=== PATIENT | female | born 1940 | race Two or more races ===

== ENCOUNTER → 2016-10-24 | Outpatient (CLI) | payer MEDICARE, BC ==
[~2016-10-24] MED LIST: ASPIRIN325 MG PO; BRILINTA90 MG PO; CPAP; ENDOXCIN 4%-1%1 EACH TOP; LIPITOR80 MG PO; LOPRESSOR25 MG PO; MUCOMYST 20200 MG/M1 PO; NITROSTAT0.4 MG SL; NORVASC2.5 MG PO; OMEPRAZOLE40 MG PO; PLAVIX75 MG PO; SKELAXIN800 MG PO; TRIACET 0.1 CRE15 GM TOP; TYLENOL325 MG PO
== END | disposition disaster alternative care site (69) ==
LOC: LFPA 15:51
DX: R82.71 Bacteriuria (principal)

== ENCOUNTER 2016-10-31 07:27 | Outpatient (CLI) | payer MEDICARE, BC ==
[~2016-10-31] VITALS: Ht 157.5 cm; Wt 64.6 kg
--- NOTE | ~2016-10-31 | CATH ---
Peripheral Diagnostic + Interventional Report Demographics Patient Name SYEDA Castorena Gender Female Date of 1940 Age 76 year(s) Patient Number [id number] Date of Study 10/31/2016 Visit Number [id number] Room Number G6[address] [place] [id number] Ht 157 cm Wt 64.6 kg Referring Tico Dong MD Primary Physician Physician Performing Rene Mitchell MD Secondary Physician Physician Diagnostic Rene Mitchell MD Assisting Physician Physician Interventional Rene Mitchell MD Physician Repair Technician Physician Findings and Conclusions Diagnostic Findings and Conclusion 6fr RDC1 guide, 0.014 prowater wire TANK INSULATOR RUBBER with 4.0x20 Emerge balloon PTI stent 7.0x17 [place] EVS to 7.2mm Diagnostic Recommendations DAPT x 1 shilpa Pull sheath in 1 hour with manual pressure Peripheral Findings and Conclusions Lt renal artery, single large with 99% prox lesion Rt renal arteriofram Dual supply 1.superior pole small ok 2. Inferior pole small ok Peripheral Recommendations PCI lt renal Procedure Description The patient was brought to the diagnostic cardiac catheterization-EP laboratory in the fasting, non-sedated state. Informed consent was obtained in the written and verbal form after the risks and benefits were explained. The patient had no further questions and agreed to proceed. The planned puncture-incision site(s) were shaved and prepped with ChloraPrep. After a three minute dry time the patient was draped in the usual sterile manner. Conscious sedation and pain control medications were delivered by a registered nurse under physician guidance. Surface ECG rhythm, blood pressure measurement, supplemental oxygen, and pulse oximetry were monitored throughout the procedure. Arterial access. The access site was infiltrated with lidocaine. The vessel was entered with the Seldinger technique. A sheath was advanced into the vessel and used for catheter placement. Bilateral Renal Angiography:Diagnostic bilateral renal angiography preformed with a JR4 diagnostic catheter. Under fluoroscopic guidance a guide catheter was placed. Contrast was injected and images were obtained. Balloon Dilatation: A wire was advanced across the lesion. The balloon catheter was placed across the lesion and inflated. Stent Placement: A wire was advanced across the lesion. The stent was then placed across the lesion and deployed. Patient was sent to nursing floor with 6 fr sheath sutured in rt groin, to be pulled in two hours post angiomax infusion. Diagnostic Cath Status: Elective Interventional Cath Status: Urgent Procedure Procedure Type Peripheral Cath Diagnostic Procedure:Renal Angiography:, Bilateral Peripheral vascular Intervention:PV Stent Indications: Hypertension. The procedure was explained in detail to the patient. Risks, complications and alternative treatments were reviewed. Written consent was obtained. Medications Reviewed with Patient prior to Procedure. Procedure Data Procedure Date Date: 10/31/2016Start: :22 AMEnd: 10:14 AM Entry Locations - Retrograde Percutaneous access was performed through the Right Femoral artery (Primary location). A 6 Fr sheath was inserted. Hemostasis was successfully obtained using Manual Compression. Closure Comments: sheath sutured in, to be pulled later on nursing floor after 2hr post angiomax ]. Procedure Medications Order and Administration + + + + + !Time !Medication !Dosage !Route ! + + + + + !10/31/2016 09:21 !Versed !1 mg !I.V. ! !AM ! ! ! ! + + + + + !10/31/2016 09:22 !Fentanyl !50 mcg !I.V. ! !AM ! ! ! ! + + + + + !10/31/2016 09:25 !Fentanyl !25 mcg !I.V. ! !AM ! ! ! ! + + + + + !10/31/2016 09:36 !Angiomax (Bivalirudin) !50 mg !I.V. bolus ! !AM !(ACC_5) ! ! ! + + + + + !10/31/2016 09:36 !Angiomax (Bivalirudin) !1.75 mg/kg/hr!I.V. drip ! !AM !(ACC_5) ! ! ! + + + + + !10/31/2016 10:04 !Plavix (ACC_8) !300 mg ! ! !AM ! ! ! ! + + + + + !10/31/2016 10:04 !Angiomax (Bivalirudin) ! !I.V. drip ! !AM !(ACC_5) ! ! ! + + + + + Devices Used - A6 Fr. BS JR 4 Diag. Catheterwas used for:Left renal. - A8 Fr. RDC(l) Guide Catheterwas used for:Left renal. Contrast Material - Isovue [id number] ml Fluoroscopy Time: Diagnostic: 12:30 minutes. Total: 12:30 minutes. Fluoroscopy Dose: Diagnostic: 380 mGy. Total: 380 mGy. Estimated Blood Loss: 5 ml. Medical History Allergies - Other:(Neomycin, Bacitracin, Polymyxin). - Penicillin. - Other:(neomycin, bacitracin, polymixin). Risk Factors The patient risk factors include:peripheral arterial disease, physical activity, hypertension, renal failure and Current/Recent(w/in 1 year) tobacco use. Admission Data Admission Date: 10/31/2016 Admission Time: 07:27 AM Admit Source: Other Insurance Payors: Medicare. Hemodynamics Condition: Rest O2 Consumption: Estimated: 144.69Heart Rate: 62 bpm Pressures (mmHg) +-----+ + !Site !Pressure ! +-----+ + !AO !164/53 (92) ! +-----+ + Shunts Oxygen Values O2 Capacity 170 O2 Consumption 144.69 Discharge Data Discharge Date: 11/01/2016 Hospital Status: Outpatient Signatures dtt: Stephen López (cardio) dtd: 10/31/16 0922 Physician Self Edit
[~2016-10-31 07:27] MED LIST changes: -MUCOMYST 20200 MG/M1 PO; -NORVASC2.5 MG PO
[2016-10-31] MEDS ORDERED: MUCOMYST 20200 MG/M1 PO (08:07)
--- NOTE | 2016-10-31 16:50 | NUR ---
Renal artery cath performed in am with stent placed. Patient arrived on floor at 1030. Sheath left in place and pulled by labor relations worker staff at 1400. Manual pressure applied for 20 minutes with no complications. Right groin access site with gauze and tegaderm. Patient to remain on bedrest until 2020 tonight. Family at bedside. Bicarb was infused per protocol.
--- NOTE | 2016-11-01 02:55 | NUR ---
PT REFUSED HER CPAP TONIGHT.
[2016-11-01 03:37] LABS: BASOPHIL % 0.3 %; EOSINOPHIL # 0.3 K/uL (0.0-0.5); EOSINOPHIL % 4.6 %; HEMATOCRIT 37.4 % (33.0-46.0); HEMOGLOBIN 11.9 g/dL (10.0-15.0); IMMATURE GRANULOCYTE % 0.3 %; LYMPHOCYTE # 0.9 K/uL (0.8-4.0); LYMPHOCYTE % 13.4 %; MCH 30.2 pg (27.0-34.0); MCHC 31.8 gm/dL (32.0-36.5); MCV 94.9 fl (83.0-98.0); MONOCYTE # 0.6 K/uL (0.0-1.0); MONOCYTE % 9.8 %; MPV 10.2 fl (9.4-12.4); NEUTROPHIL # (ANC) 4.7 K/uL (1.8-7.8); NEUTROPHIL % 71.6 %; NRBC % 0 /100WBC (0-0.00); RBC 3.94 M/uL (3.50-5.50); RDW-CV 13.2 % (11.9-14.6); WBC 6.6 K/uL (4.0-11.0)
[2016-11-01 03:39] LABS: PLATELET COUNT 178 K/uL (150-450)
[2016-11-01 03:56] LABS: ALBUMIN 3.1 gm/dL (3.5-5.0); ANION GAP 13.2 (10.0-19.0); CALCIUM 8.4 mg/dL (8.5-10.5); CREATININE 1.2 mg/dL (0.5-1.1); PHOSPHORUS 3.4 mg/dL (2.5-4.9); POTASSIUM 4.2 mMol/L (3.7-5.1)
--- NOTE | 2016-11-01 04:14 | NUR ---
Patient A/Ox3. YUROK. VSS on RA. Lungs clear/diminished. Bowel sounds present. No complaints. Voiding well. Rt groin site CDI, soft, pulses +2. 1/2NS @75ml/hr. Home today.
[2016-11-01] MEDS ORDERED: NORVASC2.5 MG PO (07:44)
--- NOTE | 2016-11-01 10:42 | NUR ---
Patient dismissed to home with daughter. Dissussed at length med changes and current med regimen, seems as though that patient was likely not taking lipitor as prescribed at home. Both verbalize understanding. R) groin remains c/d/i and soft. Ambulated in halls and tolerated well. ALEXIA castellanos'd.
== END 2016-11-01 10:20 | disposition disaster alternative care site (69) ==
LOC: GPCU 07:27 → GCAT 07:27 → GPOC 08:00 → GPCU 10:41 → GCAT 11-01 10:20
PROVIDERS: Internal Medicine Interventional Cardiology
PROC: B4181ZZ Fluoroscopy of Bilateral Renal Arteries using Low Osmolar Contrast (ICD-10-PCS; principal; 2016-10-31)
PROC: 047A3DZ Dilation of Left Renal Artery with Intraluminal Device, Percutaneous Approach (ICD-10-PCS; principal; 2016-10-31)
DX: I15.0 Renovascular hypertension (principal); I70.1 Atherosclerosis of renal artery; N18.3 Chronic kidney disease, stage 3 (moderate); I25.10 Atherosclerotic heart disease of native coronary artery without angina pectoris; E78.5 Hyperlipidemia, unspecified; I25.2 Old myocardial infarction; E66.3 Overweight; K21.9 Gastro-esophageal reflux disease without esophagitis; Z68.25 Body mass index [BMI] 25.0-25.9, adult; Z87.891 Personal history of nicotine dependence; Z95.5 Presence of coronary angioplasty implant and graft; Z79.01 Long term (current) use of anticoagulants; Z79.82 Long term (current) use of aspirin; Z79.899 Other long term (current) drug therapy; Z82.49 Family history of ischemic heart disease and other diseases of the circulatory system
CPT/HCPCS: C1725; C1769; C1876; C1887; J2001; J7060

== ENCOUNTER → 2016-11-24 | Outpatient (CLI) | payer MEDICARE, BC ==
[~2016-11-24] MED LIST changes: +MUCOMYST 20200 MG/M1 PO; +NORVASC2.5 MG PO
[2016-11-24 14:29] LABS: BASOPHIL % 0.4 %; EOSINOPHIL # 0.3 K/uL (0.0-0.5); EOSINOPHIL % 4.2 %; HEMATOCRIT 37.2 % (33.0-46.0); HEMOGLOBIN 11.6 g/dL (10.0-15.0); IMMATURE GRANULOCYTE % 0.4 %; LYMPHOCYTE # 1.2 K/uL (0.8-4.0); LYMPHOCYTE % 16.8 %; MCH 30.2 pg (27.0-34.0); MCHC 31.2 gm/dL (32.0-36.5); MCV 96.9 fl (83.0-98.0); MONOCYTE # 0.7 K/uL (0.0-1.0); MONOCYTE % 10.1 %; MPV 10.6 fl (9.4-12.4); NEUTROPHIL # (ANC) 4.7 K/uL (1.8-7.8); NEUTROPHIL % 68.1 %; NRBC % 0 /100WBC (0-0.00); PLATELET COUNT 195 K/uL (150-450); RBC 3.84 M/uL (3.50-5.50); RDW-CV 13.9 % (11.9-14.6); WBC 6.9 K/uL (4.0-11.0)
[2016-11-24 14:37] LABS: ALBUMIN 3.7 gm/dL (3.5-5.0); ANION GAP 14.2 (10.0-19.0); CALCIUM 8.7 mg/dL (8.5-10.5); CREATININE 1.4 mg/dL (0.5-1.1); PHOSPHORUS 3.3 mg/dL (2.5-4.9)
[2016-11-24 14:42] LABS: POTASSIUM 4.2 mMol/L (3.7-5.1)
== END | disposition disaster alternative care site (69) ==
LOC: LCNC 14:22
PROVIDERS: Internal Medicine Interventional Cardiology
DX: I70.1 Atherosclerosis of renal artery (principal); I25.10 Atherosclerotic heart disease of native coronary artery without angina pectoris